=== PATIENT | male | born 1975 | race African-American/Black ===

== ENCOUNTER 2024-01-22 18:06 | Emergency (ER) | payer OTHER ==
[~2024-01-22] VITALS: Ht 188 cm; Wt 90.7 kg
[2024-01-22 18:21] VITALS: BP_SYST 141; PULSE 83; RESP 18; TEMP 98.3; O2SAT 98
[2024-01-22] MEDS ORDERED: AUG875 PO (21:45)
[2024-01-22] MEDS ORDERED: AMOXICILLIN/POTASSIUM CLAV 875 MG TABLET ONE (22:20)
[2024-01-22] MEDS: AMOXICILLIN/POTASSIUM CLAV 875 MG TABLET PO ONE (22:20)
[2024-01-22 22:21] VITALS: BP_SYST 135; PULSE 83; RESP 15; TEMP 98.1; O2SAT 100
== END 2024-01-22 22:21 | disposition home or self-care (01) ==
LOC: SED 18:06
DX: J32.8 Other chronic sinusitis (principal); R51.9 Headache, unspecified
CPT/HCPCS: 70450-TC; 99284